=== PATIENT | female | born 1990 | race Caucasian/White ===

== ENCOUNTER 2018-11-07 20:15 | Emergency (ER) | payer OTHER ==
[2018-11-07 20:30] VITALS: BP 129/59; PULSE 63; RESP 18; TEMP 98.6
--- NOTE | 2018-11-07 20:50 | ED ---
General Adult HPI - General Chief complaint: Needlestick/Exposure Stated complaint: Needle Stick Source: patient, RN notes reviewed, old records reviewed Mode of arrival: ambulatory Limitations: no limitations - History of Present Illness Initial comments: 28-year-old female patient with no pertinent past medical history presents to ED after sustaining a needlestick exposure on . Patient states that after an intramuscular injection she recap the needle and accidentally stuck herself on the distal palmar second digit on left hand. Patient states that the needle was a 27-gauge hollow bore needle. Patient states that she does not believe that the patient had any blood-borne pathogens. Patient denies any other complaints. Systemic: Pt denies fatigue, myalgia, fever/chills, rash. Pt denies weakness, night sweats, weight loss. Neuro: Pt denies headache, visual disturbances, syncope or pre-syncope. HEENT: Pt denies ocular discharge or irritation, otalgia, rhinorrhea, pharyngitis or notable lymphadenopathy. Cardiopulmonary: Pt denies chest pain, SOB, heart palpitations, dyspnea on exertion. Abdominal/GI: Pt denies abdominal pain, n/v/d. : Pt denies dysuria, burning w/ urination, frequency/urgency. Denies new onset urinary or bowel incontinence. MSK: Pt denies myalgia, loss of strength or function in extremities. Neuro: Pt denies new onset weakness, paresthesias. - Related Data Home Medications Medication Instructions Recorded Confirmed Control Pills 1 tab PO DAILY 11/05/14 11/05/14 Allergies Allergy/AdvReac Type Severity Reaction Status Date / Time No Known Allergies Allergy Verified 11/07/18 20:30 Review of Systems ROS Statement: Those systems with pertinent positive or pertinent negative responses have been documented in the HPI. ROS Other: All systems not noted in ROS Statement are negative. Past Medical History Past Medical History: No Reported History History of Any Multi-Drug Resistant Organisms: None Reported Past Surgical History: No Surgical Hx Reported Past Psychological History: Depression Smoking Status: Never smoker Past Alcohol Use History: Occasional Past Drug Use History: None Reported General Exam - General Exam Comments Initial Comments: Constitutional: NAD, AOX3, Pt has pleasant affect. HEENT: NC/AT, trachea midline, neck supple, no lymphadenopathy. Posterior pharynx non erythematous, without exudates. External ears appear normal, without discharge. Mucous membranes moist. Eyes PERRLA, EOM intact. There is no scleral icterus. No pallor noted. Cardiopulmonary: RRR, no murmurs, rubs or gallops, no JVD noted. Lungs CTAB in anterior and posterior rider. No peripheral edema. Abdominal exam: Abdomen soft and non-distended. Abdomen non-tender to palpation in all 4 quadrants. Bowel sounds active in LLQ. No hepatosplenomegaly. No ecchymosis Neuro: CN II-XII grossly intact. No nuchal rigidity. MSK: No posterior calf tenderness bilaterally, homans sign negative bilaterally. Posterior tibialis and radial pulse +2 bilaterally. Sensation intact in upper and lower extremities. Full active ROM in upper and lower extremities, 5/5 stregnth. Limitations: no limitations Course Vital Signs 11/07/18 20:28 Temperature 98.6 F Pulse Rate 63 Respiratory 18 Rate Blood Pressure 129/59 O2 Sat by Pulse 100 Oximetry Medical Decision Making - Medical Decision Making 28-year-old female patient with no pertinent past medical history presents to ED after sustaining a needlestick exposure on . Patient states that after an intramuscular injection she recap the needle and accidentally stuck herself on the distal palmar second digit on left hand. Patient states that the needle was a 27-gauge hollow bore needle. Patient states that she does not believe that the patient had any blood-borne pathogens. Patient denies any other complaints. Physical exam did not display acute pathology. Long discussion patient with regards to blood-borne pathogens, risk of infection. Patient verbalized understanding. Patient declined HIV prophylaxis medication. Patient preferred to be called with results and have outpatient continued follow-up and testing. Case discussed with Dr. Salazar. Disposition Clinical Impression: Needlestick injury accident Disposition: HOME SELF-CARE Condition: Serious Instructions: Needle Stick Injuries (ED) Additional Instructions: Patient to adhere to previously discussed treatment plan and will take medication(s) as directed. Patient to follow up with PCP in 1-2 days. Patient to return to ED if symptoms do not improve. Is patient prescribed a controlled substance at d/c from ED?: No Referrals: None,Stated [Primary Care Provider] - 1-2 days Time of Disposition: 20:50
== END 2018-11-07 20:55 | disposition home or self-care (01) ==
LOC: EC 20:15
DX: S69.82XA Other specified injuries of left wrist, hand and finger(s), initial encounter (principal); Z77.21 Contact with and (suspected) exposure to potentially hazardous body fluids; Z79.3 Long term (current) use of hormonal contraceptives; W46.1XXA Contact with contaminated hypodermic needle, initial encounter
CPT/HCPCS: 99283

== ENCOUNTER → 2023-01-15 | Outpatient (CLI) | payer MEDICAID | END | disposition home or self-care (01) | LOC: LABWHC1 08:04 | PROVIDERS: ATTEND Obstetrics & Gynecology | DX: N97.8 Female infertility of other origin (principal) | CPT/HCPCS: 36415; 84144 ==

== ENCOUNTER → 2023-02-11 | Outpatient (CLI) | payer MEDICAID | END | disposition home or self-care (01) | LOC: LABWHC1 10:35 | PROVIDERS: ATTEND Obstetrics & Gynecology | DX: N97.8 Female infertility of other origin (principal) | CPT/HCPCS: 36415; 84144 ==

== ENCOUNTER → 2023-03-12 | Outpatient (CLI) | payer MEDICAID | END | disposition home or self-care (01) | LOC: LABWHC1 12:01 | PROVIDERS: ATTEND Obstetrics & Gynecology | DX: Z52.810 Egg (Oocyte) donor under age 35, anonymous recipient (principal); Z32.00 Encounter for pregnancy test, result unknown; O02.1 Missed abortion; N97.8 Female infertility of other origin | CPT/HCPCS: 36415; 84144 ==

== ENCOUNTER → 2023-03-31 | Outpatient (CLI) | payer MEDICAID ==
[2023-04-01 03:02] LABS: Basophils # (A) 0.06 X 10*3/uL (0.00-0.10); Basophils % (A) 0.7 %; Eosinophils # (A) 0.12 X 10*3/uL (0.04-0.35); Eosinophils % (A) 1.4 %; HCT 41.5 % (37.2-46.3); Lymphocytes # (A) 2.13 X 10*3/uL (0.90-5.00); MCH 30.4 pg (27.0-32.0); MCHC 31.3 d/dL (32.0-37.0); Mean Platelet Volume 10.2 FL (9.5-12.2); Monocytes # (A) 0.67 X 10*3/uL (0.20-1.00); Monocytes % (A) 7.9 %; NRBC Per 100 WBC 0 X 10*3/uL (0.00-0.01); Neutrophils # (A) 5.51 X 10*3/uL (1.80-7.70); Neutrophils % (A) 64.6 %; Platelet Count 273 X 10*3/uL (140-440); RBC 4.28 X 10*6/uL (4.10-5.20); RDW 13.2 % (11.5-14.5); WBC 8.52 X 10*3/uL (4.50-10.00)
== END | disposition home or self-care (01) ==
LOC: LABPAT 16:24
PROVIDERS: ATTEND Obstetrics & Gynecology
DX: Z01.812 Encounter for preprocedural laboratory examination (principal); N80.9 Endometriosis, unspecified
CPT/HCPCS: 85025

== ENCOUNTER 2023-04-07 11:21 | Day surgery (SDC) | payer MEDICAID ==
[2023-04-03 14:39] VITALS: BMI 24.3
[~2023-04-07 11:21] MED LIST: DEXAMETHASONE SOD PHOSPHATE 4 MG/ML 1 ML VIAL IV ONE; MORPHINE SULFATE 4 MG/ML SYRINGE IV PRN; ONDANSETRON 4 MG/2 ML VIAL IVP ONE; Pre Op ABX Message 1 EACH MISC MISCELLANE ONE
[2023-04-07] MEDS: LACTATED RINGERS 1,000 ML IV SCH (12:03)
[2023-04-07] MEDS ORDERED: SCOPOLAMINE 1 MG/72 HR PATCH TRANSDERM ONE (12:03)
[2023-04-07] MEDS ORDERED: fentaNYL (PF) 50 MCG/ML 2 ML AMP ONE (12:24)
[2023-04-07] MEDS ORDERED: LIDOCAINE 2% INJ 20 MG/ML (2 ML VIAL) ONE (12:24)
[2023-04-07] MEDS ORDERED: NEOSTIGMINE 1 MG/ML 10 ML VIAL ONE (12:24)
[2023-04-07] MEDS ORDERED: KETOROLAC 15 MG/ML 1 ML VIAL ONE (12:24)
[2023-04-07] MEDS ORDERED: SUCCINYLCHOLINE CHLORIDE 200 MG/10 ML VIAL IV ONE (12:24)
[2023-04-07] MEDS ORDERED: PROPOFOL 10 MG/ML 20 ML VIAL IV ONE (12:24)
[2023-04-07] MEDS ORDERED: ROCURONIUM 10 MG/ML (5 ML VIAL) IV ONE (12:24)
[2023-04-07] MEDS ORDERED: GLYCOPYRROLATE 0.2 MG/ML 2 ML VIAL ONE (12:24)
[2023-04-07] MEDS ORDERED: BUPIVACAINE (PF) 0.25% 30 ML VIAL SQ ONE ×2 (12:51)
[2023-04-07 13:31] VITALS: TEMP 97.1
--- NOTE | 2023-04-07 13:44 | P.OP ---
Date of Procedure: 04/07/23 Preoperative Diagnosis: Rule out endometriosis Postoperative Diagnosis: Pelvic adhesions, pelvic endometriosis Procedure(s) Performed: Diagnostic laparoscopy, cautery pelvic endometriosis Anesthesia: ABILIOA Surgeon: Kina Turner Estimated Blood Loss (ml): 10 IV fluids (ml): 600 Urine output (ml): 150 Pathology: none sent Condition: stable Disposition: PACU Operative Findings: Normal-appearing fallopian tubes bilaterally. Normal-appearing ovaries bilaterally. Normal-appearing posterior cul-de-sac. Normal-appearing appendix. Negative pelvic sidewalls bilaterally. Pelvic endometriosis noted on the anterior uterine surface to the bladder serosa. There are adhesions noted in this same region, filmy, bilaterally, taken down nicely laparoscopically. Description of Procedure: Patient is brought to the operating suite. General anesthetic is administered without difficulty. Urine hCG is negative. Patient is placed in the dorsal lithotomy position. The cervix, vagina, perineal body and abdomen are all prepped and draped in usual sterile fashion. The appropriate timeout is performed to assure proper patient and procedural identification. The bladder is drained for approximately 150 mL of clear yellow. Examination under anesthesia is negative. Speculum is placed, anterior lip of the cervix is grasped with an Allis clamp and a acorn cannula is seated on the cervix and attached to the Allis clamp. Speculum is removed. Attention is now drawn to the abdominal wall. A small incision is made infraumbilically and the varies needle is placed, placement is checked with hanging drop technique. Abdomen is insufflated under low filling pressures of approximately 8-10 mmHg for a total of 3 L of CO2 gas. Varies needle is removed. 5 mm trocar is now placed and placement is noted to be atraumatic upon inserting the laparoscope. A second incision is made suprapubically under direct visualization the second trocar is placed, placement atraumatic. Uterus is now placed in the anteverted position and the cul-de-sac is inspected. Uterosacral ligaments are negative. Bilateral tubes and ovaries appeared very normal to inspection. Both pelvic sidewalls are negative. The upper abdomen is negative, appendix appears normal. The uterus is now once again evaluated and placed into the pelvic cavity. There are filmy adhesions noted from the anterior uterine serosal surface to the b ladder. Electrocautery is used and these filmy adhesions are taken down. In addition, endometriosis is noted bilaterally again on the side of the uterus acid interface is with the bladder. Electrocautery is used and the endometriosis is cauterized. "Chocolate fluid" is encountered. When I am confident that the endometriosis has been thoroughly cauterized, the pelvis is irrigated with sterile saline and once again inspected. It is clean and dry. The CO2 gas was allowed to diffuse. The 2 small incisions are reapproximated with 4-0 Monocryl suture subcuticularly. Steri-Strips and Mastisol are applied to the wounds after they are injected with 3 mL each of quarter percent Marcaine without epinephrine. Instrumentation is removed from the vagina. Cervix is clean and dry. All sponge needle and enhancement counts are correct. Patient is brought back to recovery room in very good condition with stable vital signs, blood pressure 91/43, pulse 50. She is given Toradol prior to leaving the operative suite. She will follow-up in the office with me next week. Picture documentation is given to the family to confirm the above.
[2023-04-07] MEDS ORDERED: LACTATED RINGERS 1,000 ML IV ONE ×2 (14:14→14:36)
[2023-04-07 14:39] VITALS: PULSE 66; RESP 14
[2023-04-07 14:50] VITALS: BP 112/75
== END 2023-04-07 15:00 | disposition home or self-care (01) ==
LOC: OR 11:21
PROVIDERS: ATTEND Obstetrics & Gynecology
DX: N80.30 Endometriosis of pelvic peritoneum, unspecified (principal); N73.6 Female pelvic peritoneal adhesions (postinfective); Z79.82 Long term (current) use of aspirin; Z88.8 Allergy status to other drugs, medicaments and biological substances
CPT/HCPCS: 58662; J0330; J1100; J2710; J2405; J3010; J1885; J2704; J2001

== ENCOUNTER → 2023-10-31 | Outpatient (CLI) | payer MEDICAID ==
[2023-10-31 23:19] LABS: T4, Free (Free Thyroxine) 1.12 ng/dL (0.80-1.80)
[2023-10-31 23:36] LABS: Prolactin 20.2 ng/mL (2.800-29.200)
== END | disposition home or self-care (01) ==
LOC: LABWHC1 10:32
PROVIDERS: ATTEND Obstetrics & Gynecology Obstetrics
DX: N92.5 Other specified irregular menstruation (principal); N96 Recurrent pregnancy loss
CPT/HCPCS: 36415; 81240; 81241; 81291; 83036; 84144; 84146; 84439; 84443; 84702

== ENCOUNTER → 2023-11-04 | Outpatient (CLI) | payer MEDICAID | END | disposition home or self-care (01) | LOC: LABWHC1 12:39 | PROVIDERS: ATTEND Nurse Practitioner Acute Care | DX: E03.9 Hypothyroidism, unspecified (principal) | CPT/HCPCS: 36415; 84443 ==

== ENCOUNTER → 2023-11-10 | Outpatient (CLI) | payer MEDICAID | END | disposition home or self-care (01) | LOC: LABWHC1 13:56 | PROVIDERS: ATTEND Obstetrics & Gynecology Obstetrics | DX: O02.1 Missed abortion (principal); Z3A.00 Weeks of gestation of pregnancy not specified | CPT/HCPCS: 36415; 84702 ==

== ENCOUNTER → 2024-01-06 | Outpatient (CLI) | payer MEDICAID | END | disposition home or self-care (01) | LOC: LABWHC1 06:56 | PROVIDERS: ATTEND Obstetrics & Gynecology | DX: N97.8 Female infertility of other origin (principal) | CPT/HCPCS: 36415; 84144; 84702 ==

== ENCOUNTER 2024-09-05 10:04 | Inpatient (IN) | payer MEDICAID ==
[2024-09-05] MEDS: LACTATED RINGERS 1,000 ML IV SCH ×2 (10:30→16:23)
[2024-09-05] MEDS ORDERED: miSOPROStoL 200 MCG TAB PO PRN (10:39)
[2024-09-05] MEDS ORDERED: TRANEXAMIC 1,000 MG/100ML-NACL 1,000 MG in EMPTY BAG 1 BAG IV PRN (10:39)
[2024-09-05] MEDS ORDERED: METHYLERGONOVINE 0.2 MG/ML 1 ML AMP IM PRN (10:39)
[2024-09-05] MEDS ORDERED: OXYTOCIN 10 UNIT/ML 1 ML VIAL IM PRN (10:39)
[2024-09-05] MEDS ORDERED: CARBOPROST TROMETHAMINE 250 MCG/ML 1 ML AMP IM PRN (10:39)
[2024-09-05 10:47] LABS: Basophils # (A) 0.1 k/uL (0-0.2); Basophils % (A) 1 %; Eosinophils # (A) 0.3 k/uL (0-0.7); Eosinophils % (A) 3 %; HCT 35.5 % (34.0-46.0); HGB 11.8 gm/dL (11.4-16.0); Lymphocytes # (A) 1.5 k/uL (1.0-4.8); Lymphocytes % (A) 18 %; MCH 30.6 pg (25.0-35.0); MCHC 33.1 g/dL (31.0-37.0); MCV 92.4 fL (80.0-100.0); Mean Platelet Volume 8.1; Monocytes # (A) 0.4 k/uL (0-1.0); Monocytes % (A) 5 %; Neutrophils # (A) 6.1 k/uL (1.3-7.7); Neutrophils % (A) 72 %; Platelet Count 220 k/uL (150-450); RBC 3.84 m/uL (3.80-5.40); RDW 14.4 % (11.5-15.5); WBC 8.5 k/uL (3.8-10.6)
[2024-09-05] MEDS: CITRIC ACID-SODIUM CITRATE 15 ML CUP PO ONE (11:42)
[2024-09-05] MEDS ORDERED: ONDANSETRON 4 MG/2 ML VIAL ONE (12:02)
[2024-09-05] MEDS ORDERED: MORPHINE SULFATE (PF) 0.3 MG/0.3 ML SYR ONE (12:02)
[2024-09-05] MEDS ORDERED: OXYTOCIN 30 UNITS/500 ML NS BAG IV ONE (12:02)
[2024-09-05] MEDS ORDERED: NALBUPHINE (ANES) 10 MG/ML - 1 ML AMP ONE (12:02)
[2024-09-05] MEDS ORDERED: NALOXONE 0.4 MG/ML 1 ML VIAL IV PRN ×2 (12:47→12:58)
[2024-09-05] MEDS ORDERED: diphenhydrAMINE 50 MG/ML 1 ML VIAL IVP PRN ×2 (12:47→12:58)
[2024-09-05] MEDS ORDERED: ONDANSETRON 4 MG/2 ML VIAL IVP PRN ×2 (12:47→12:58)
[2024-09-05] MEDS ORDERED: NALBUPHINE 10 MG/ML (10 ML MDV) IV PRN (12:47)
--- NOTE | 2024-09-05 12:55 | P.HPOB ---
History of Present Illness H&P Date: 09/05/24 Chief Complaint: IUP at 39-2/7 weeks, breech presentation This is a 34-year-old 5 para 0-0-4-0 that presents to labor and delivery at 39-2/7 weeks for scheduled primary . Patient has a known history of MTHFR and has been on prophylactic Lovenox. Patient has been receiving routine care which has been essentially uncomplicated. Patient notes good movement denies contractions. On blood work this patient is a blood type of a positive, rubella status immune, hepatitis B surface engine negative, HIV negative, hepatitis C nonreactive, grew beta strep culture negative. Review of Systems Constitutional: Denies chills, Denies fatigue, Denies fever Ears, nose, mouth and throat: Denies headache Cardiovascular: Denies leg edema Respiratory: Denies dyspnea Gastrointestinal: Denies constipation, Denies diarrhea, Denies nausea, Denies vomiting Genitourinary: Reports Past Medical History Past Medical History: No Reported History Additional Past Medical History / Comment(s): Missed . History of Any Multi-Drug Resistant Organisms: None Reported Past Surgical History: No Surgical Hx Reported Additional Past Surgical History / Comment(s): d&c, exploratory lab 2022 Past Anesthesia/Blood Transfusion Reactions: No Reported Reaction Additional Past Anesthesia/Blood Transfusion Reaction / Comment(s): Has never had general anesthesia. Past Psychological History: Depression, No Psychological Hx Reported Additional Psychological History / Comment(s): Hx depression, none currently. Smoking Status: Never smoker Past Alcohol Use History: Occasional Past Drug Use History: None Reported - Past Family History Father Family Medical History: Cancer Additional Family Medical History / Comment(s): Testicular Cancer. Medications and Allergies Home Medications Medication Instructions Recorded Confirmed Type Aspirin [Adult Low Dose Aspirin EC] 81 mg PO DAILY 04/03/23 09/05/24 History Vit No.179/Iron/Folic 1 each PO DAILY 04/03/23 09/05/24 History [ Tablet] Enoxaparin [Lovenox] 40 mg SQ DAILY 09/05/24 09/05/24 History Allergies Allergy/AdvReac Type Severity Reaction Status Date / Time casirivimab AdvReac Rash/Hives Verified 09/05/24 10:38 [From [facility] ([facility])] imdevimab AdvReac Rash/Hives Verified 09/05/24 10:38 [From [facility] [place] ([place])] Exam Osteopathic Statement: *. No significant issues noted on an osteopathic structural exam other than those noted in the History and Physical/Consult. Vital Signs Temp Pulse Resp BP Pulse Ox 09/05/24 10:27 98.4 F 88 18 116/75 98 Intake and Output 09/04/24 09/05/24 09/05/24 22:59 06:59 14:59 Other: Weight 82.1 kg Targeted physical exam is performed this date General Is a well-nourished well- developed female in no acute distress, breathing is nonlabored, heart has a regular rate and rhythm, abdomen is gravid, position is noted to be myrna breech, heart tones are noted to be category 1 and she is not prudencio, cervix is not examined. Results Result Diagrams: 09/05/24 10:31 Assessment and Plan (1) Term Current Visit: Yes Status: Acute Code(s): Z34.90 - ENCNTR FOR SUPRVSN OF NORMAL , UNSP, UNSP TRIMESTER SNOMED Code(s): 26916096 (2) Breech presentation Current Visit: Yes Status: Acute Code(s): O32.1XX0 - MATERNAL CARE FOR BREECH PRESENTATION, UNSP SNOMED Code(s): 0622678 Plan: 34-year-old 5 para 0-0-4-0 at 39-2/7 weeks that presents for primary C- section secondary to breech presentation. Procedure is reviewed and questions are answered. Last Lovenox dose was approximately 24 hours ago. Patient denies concerns and wishes to proceed, anesthesia in room will proceed to operating room.
[2024-09-05] MEDS ORDERED: METOCLOPRAMIDE 5 MG/ML 2 ML VIAL IVP PRN (12:58)
[2024-09-05] MEDS ORDERED: diphenhydrAMINE 50 MG CAP PO PRN (12:58)
[2024-09-05] MEDS ORDERED: ZOLPIDEM 5 MG TAB PO PRN (12:58)
[2024-09-05] MEDS ORDERED: SIMETHICONE 80 MG CHEWABLE PO PRN (12:58)
[2024-09-05] MEDS ORDERED: diphenhydrAMINE 25 MG CAP PO PRN (12:58)
--- NOTE | 2024-09-05 12:58 | P.OP ---
Date of Procedure: 09/05/24 Preoperative Diagnosis: IUP at 39-2/7 weeks, breech presentation Postoperative Diagnosis: Same Procedure(s) Performed: Primary low-transverse section Anesthesia: spinal Surgeon: Pebbles Molina Narcotics Agent #1: Alisha Barney Estimated Blood Loss (ml): 861 IV fluids (ml): 900 Urine output (ml): 100 Pathology: none sent Condition: stable Disposition: observation Indications for Procedure: Breech presentation Operative Findings: Viable female infant delivered at 1222, weight of 6 pounds 15 ounces, myrna breech presentation Description of Procedure: The patient was prepped and draped in the usual fashion after spinal anesthesia was administered by Dr. Hassan. A Pfannenstiel incision was made and extended of the abdominal cavity without difficulty. The bladder peritoneum was elevated and incised and reflected distally. A 2 cm incision was made in the transverse plane of the lower uterine segment to enter the uterus at which time clear fluid was noted. The incision was extended in both directions using the bandage scissors. The sacrum was appreciated, elevated through the uterine incision to the level of the upper torso both arms were swept across the face and the head was delivered without difficulty. The cord was doubly clamped, cut, and the was passed for resuscitative measures with weight and Apgars as noted above. The placenta was delivered manually, intact, and was grossly normal with a grossly normal three-vessel cord. The uterus was exteriorized and the interior cavity of the uterus swept of any remaining placental and membranous fragments with a laparotomy sponge. The margins of the incision were grasped with Allis clamps and the incision closed in 2 layers. First layer was a running locking layer of 0 Vicryl from margin to margin followed by a second layer of imbricating 0 Vicryl from margin to margin. Small amount of bleeding was noted in the mid/lateral portion 2 [id number] sutures were used to obtain hemostasis. Any small points of bleeding were then made hemostatic with the Bovie. Once hemostasis was achieved, the posterior cul-de-sac was suctioned with a guard and the uterine and ovarian findings are as noted above. The uterus was replaced within the abdominal cavity and the gutters swept of any remaining blood fluid or clot. The incision was again reexamined and hemostasis was noted to be excellent. Any small point of bleeding were made hemostatic with the Bovie. Once hemostasis was achieved the parietal peritoneum was loosely reapproximated. The layer of muscles were examined and made hemostatic with the Bovie. Attention was then turned to the fascia which was closed with a running suture of 0 Vicryl proceeding from 1 lateral edge to the other. The subcutaneous tissues were irrigated, made hemostatic with the Bovie, and reapproximated with a running stitch of 30 Vicryl. The skin was reapproximated with 4-0 Vicryl. Estimated blood loss for the case was approximately 210115 mL. All sponge instrument and needle counts are correct. There were no complications. The patient tolerated the procedure well and proceeded to the recovery room in stable condition. Both mother and are resting comfortably in recovery.
[2024-09-05] MEDS ORDERED: OXYTOCIN 30 UNITS/500 ML NS 30 UNIT in SALINE 1 500ML.BAG IV SCH (13:00)
[2024-09-05] MEDS: METOCLOPRAMIDE 5 MG/ML 2 ML VIAL IVP PRN (13:31)
[2024-09-05] MEDS: diphenhydrAMINE 50 MG/ML 1 ML VIAL IVP PRN (15:32)
[2024-09-05] MEDS: ACETAMINOPHEN IV (For NPO) 1,000 MG in EMPTY BAG 1 BAG IVPB ONE (16:05)
[2024-09-05] MEDS: KETOROLAC 15 MG/ML 1 ML VIAL IVP PRN (19:50)
[2024-09-05] MEDS: SENNOSIDES-DOCUSATE SODIUM 1 EACH TAB PO SCH (22:05)
[2024-09-06] MEDS: ACETAMINOPHEN TAB 500 MG TAB PO SCH (01:10)
[2024-09-06] MEDS: IBUPROFEN 800 MG TAB PO SCH (04:09)
[2024-09-06 06:24] LABS: Basophils % (A) 0 %; Eosinophils # (A) 0.2 k/uL (0-0.7); Eosinophils % (A) 2 %; HCT 31.2 % (34.0-46.0); HGB 10.5 gm/dL (11.4-16.0); Lymphocytes # (A) 2.1 k/uL (1.0-4.8); Lymphocytes % (A) 19 %; MCH 31.4 pg (25.0-35.0); MCHC 33.6 g/dL (31.0-37.0); MCV 93.5 fL (80.0-100.0); Mean Platelet Volume 8.2; Monocytes # (A) 0.4 k/uL (0-1.0); Monocytes % (A) 4 %; Neutrophils # (A) 8.3 k/uL (1.3-7.7); Neutrophils % (A) 74 %; Platelet Count 202 k/uL (150-450); RBC 3.34 m/uL (3.80-5.40); RDW 14.6 % (11.5-15.5); WBC 11.2 k/uL (3.8-10.6)
--- NOTE | 2024-09-06 08:29 | P.PN ---
Progress Note - Text Progress Note Date: 09/06/24 Patient was seen and examined side. Received intrathecal morphine 300 mcg , and for postop pain control as per surgeon request. Today postop day 1 . Today complaining her pain levels 3-4 out of 10 in severity. Able to ambulate without any difficulty. Denied any weakness. Mild itching. Physical exam: Vitals : stable vitals, afebrile Assessment and plan: S/p postop day 1 - Continue oral pain medications as needed as per primary care. Please contact anesthesia as needed.
--- NOTE | 2024-09-06 12:44 | P.PNOBGPC ---
Subjective - Subjective Principal diagnosis: Postop day 1, primary Interval history: Patient is doing well postoperatively. She is ambulating and voiding without difficulty. States her pain is well-controlled. She denies nausea or vomiting is tolerating regular diet, lochia is noted to be minimal to moderate. Patient reports: Reports appetite normal, Reports voiding normally, Reports pain well controlled, Reports ambulating normally : doing well, nursing well Objective - Vital Signs Latest vital signs: Vital Signs Temp Pulse Resp BP Pulse Ox 09/06/24 11:00 16 09/06/24 09:00 16 97 09/06/24 08:00 98.1 F 78 16 116/68 97 09/06/24 07:00 16 09/06/24 04:53 18 96 09/06/24 03:00 18 09/06/24 01:00 16 96 09/06/24 00:53 98.6 F 72 16 111/63 96 09/05/24 23:00 16 09/05/24 21:00 16 09/05/24 19:00 18 09/05/24 16:00 98 09/05/24 15:47 98.8 F 73 18 143/77 99 09/05/24 14:53 96.9 F L 65 16 129/71 100 09/05/24 14:38 96.9 F L 69 18 137/70 100 09/05/24 14:23 73 18 118/61 99 09/05/24 14:08 96.6 F L 58 L 18 114/62 99 09/05/24 13:53 72 18 104/58 99 09/05/24 13:47 18 98 09/05/24 13:38 65 18 114/57 99 09/05/24 13:23 62 18 103/58 100 09/05/24 13:08 64 18 112/57 99 09/05/24 12:53 96.7 F L 70 18 109/56 98 Intake and Output 09/05/24 09/06/24 09/06/24 22:59 06:59 14:59 Output Total 653 300 Balance -653 -300 Output: Urine 600 300 Uretheral (Mccarthy) 250 Output, Quantitative 53 Blood Loss Other: # Voids 250 1 - Exam Extremities: Present: normal, edema Abdomen: Present: normal appearance, soft Incision: Present: normal, dry, intact Uterus: Present: normal, firm - Labs Labs: Abnormal Lab Results - Last 24 Hours (Table) 09/06/24 Range/Units 06:09 WBC 11.2 H (3.8-10.6) k/uL RBC 3.34 L (3.80-5.40) m/uL Hgb 10.5 L (11.4-16.0) gm/dL Hct 31.2 L (34.0-46.0) % Neutrophils # 8.3 H (1.3-7.7) k/uL Assessment and Plan (1) Term Current Visit: Yes Status: Acute Code(s): Z34.90 - ENCNTR FOR SUPRVSN OF NORMAL , UNSP, UNSP TRIMESTER SNOMED Code(s): 69832261 (2) Breech presentation Current Visit: Yes Status: Acute Code(s): O32.1XX0 - MATERNAL CARE FOR BREECH PRESENTATION, UNSP SNOMED Code(s): 5886568 (3) Status post section Current Visit: Yes Status: Acute Code(s): Z98.891 - HISTORY OF UTERINE SCAR FROM PREVIOUS SURGERY SNOMED Code(s): 131358401 Plan: 34-year-old 5 now para 1-0-4-1 status post primary for breech presentation. Patient is doing well postoperatively. Will restart patient's Lovenox 40 mg given her prior diagnosis of MTHFR. Encourage increased ambulation Anticipate discharge home tomorrow.
[2024-09-06] MEDS ORDERED: ENOXAPARIN 40 MG/0.4 ML SYRINGE SQ SCH (12:45)
[2024-09-06] MEDS: ENOXAPARIN 40 MG/0.4 ML SYRINGE SQ SCH (13:26)
[2024-09-06] MEDS ORDERED: IBUPROFEN 800 MG TAB PO SCH (17:00)
[2024-09-06] MEDS ORDERED: ACETAMINOPHEN TAB 500 MG TAB PO SCH (21:00)
[2024-09-07 00:26] VITALS: TEMP 98.7
--- NOTE | 2024-09-07 08:46 | P.DS ---
Providers Date of admission: 09/05/24 10:04 Expected date of discharge: 09/07/24 Attending physician: Pebbles Molina Primary care physician: Stated None - Discharge Diagnosis(es) (1) Term Current Visit: Yes Status: Acute (2) Breech presentation Current Visit: Yes Status: Acute (3) Status post section Current Visit: Yes Status: Acute Hospital Course: This is a 34-year-old 5 now para 1-0-4-1 that presented to labor and delivery on 09/05 for scheduled section secondary to breech presentation. Patient had been receiving routine care with myself which has been essentially uncomplicated. Patient does have a history of MTHFR mutation for which she has been taking Lovenox 40 mg subcu daily. For full details on this patient please see the dictated history and physical. Patient was admitted to labor and delivery and section was performed without difficulty. For full details on the please see the dictated operative for. Patient delivered a viable female infant at 1222, weight of 6 pounds 15 ounces, myrna breech presentation. Patient's course has been uneventful. In this postoperative day #2 she is ambulating and voiding without difficulty. She is tolerating a regular diet without nausea or vomiting. She states her pain is well-controlled. She denies concerns and would like discharge home. Patient Condition at Discharge: Good Plan - Discharge Summary New Discharge Prescriptions: No Action Vit No.179/Iron/Folic [ Tablet] 1 each PO DAILY Aspirin [Adult Low Dose Aspirin EC] 81 mg PO DAILY Enoxaparin [Lovenox] 40 mg SQ DAILY Discharge Medication List Aspirin [Adult Low Dose Aspirin EC] 81 mg PO DAILY 04/03/23 [History] Vit No.179/Iron/Folic [ Tablet] 1 each PO DAILY 04/03/23 [History] Enoxaparin [Lovenox] 40 mg SQ DAILY 09/05/24 [History] Follow up Appointment(s)/Referral(s): Pebbles Molina DO [Doctor of Osteopathic Medicine] - 09/20/24 1:00 pm (Post Appointment 10-18-2024 at 1:00pm) Patient Instructions/Handouts: (DC), (GEN) Activity/Diet/Wound Care/Special Instructions: No intercourse, or tub baths. No driving for two weeks. Call with any fever, shakes or chills, with any pain not alleviated by over the counter meds, or with any questions or concerns. Twuj-bdm-iocghgo ibuprofen 600 mg or 3 tablets every 6 hours as needed for pain. Patient is to follow-up in 2 weeks for routine postoperative check, should she have any concerns prior to his appointment she is urged to call the office and be seen prior Discharge Disposition: HOME SELF-CARE
[2024-09-07] MEDS ORDERED: PRENATAL VIT-IRON-FOLIC ACID 1 EACH TABLET PO SCH (09:00)
[2024-09-07 09:40] VITALS: BP 130/64; PULSE 70; RESP 18
== END 2024-09-07 11:00 | disposition home or self-care (01) | DRG 787 ==
LOC: 4FBP 10:04
PROVIDERS: ADMIT Obstetrics & Gynecology Obstetrics; ATTEND Obstetrics & Gynecology Obstetrics
PROC: 10D00Z1 Extraction of Products of Conception, Low, Open Approach (ICD-10-PCS; principal; 2024-09-05 12:00)
DX: O32.1XX0 Maternal care for breech presentation, not applicable or unspecified (principal); E72.12 Methylenetetrahydrofolate reductase deficiency; O99.284 Endocrine, nutritional and metabolic diseases complicating childbirth; F32.A Depression, unspecified; O99.344 Other mental disorders complicating childbirth; Z37.0 Single live birth; Z3A.39 39 weeks gestation of pregnancy; Z79.82 Long term (current) use of aspirin; Z88.8 Allergy status to other drugs, medicaments and biological substances
CPT/HCPCS: 85025; 86850; 86900; 86901

== ENCOUNTER → 2025-03-29 | Outpatient (CLI) | payer MEDICAID ==
--- NOTE | 2025-03-30 10:05 | MR ---
EXAMINATION TYPE: MR lumbar spine wo/w con DATE OF EXAM: 03/29/2025 8:18 PM COMPARISON: None. CLINICAL INDICATION: Female, 34 years old with history of M54.60; PHH, Low back pain into left leg, N umbness left leg, x1-2 months, Hx spinal block Aug 2024 TECHNIQUE: Multi planar, multi sequence imaging was performed utilizing: T1-weighted, T2-weighted, a nd turbo inversion recovery imaging of the lumbar spine. IV Contrast: 7 mL Gadobutrol (None, if empty) FINDINGS: Alignment: The lumbar vertebral bodies have preserved heights and alignment. Cord: The conus medullaris and the distal spinal cord appear unremarkable with regards to their signa l intensity and morphology. Bones/Discs: Minimal disc degeneration changes worse at L5-S1 with disc space narrowing, Modic endpla te changes and osteophytes. Intervertebral disc signal is maintained. No abnormal inversion recovery signal to suggest bony edema. T12-L1: No evidence of significant spinal canal stenosis or neural foraminal stenosis. L1-L2: No evidence of significant spinal canal stenosis or neural foraminal stenosis. L2-L3: No evidence of significant spinal canal stenosis or neural foraminal stenosis. L3-L4: No evidence of significant spinal canal stenosis or neural foraminal stenosis. L4-L5: No evidence of significant spinal canal stenosis or neural foraminal stenosis. L5-S1: Largest left extrusion which displaces the forming nerves in the spinal canal/exiting S1 and S 2 nerve on the left. No significant spinal canal or neural foraminal stenosis in the remainder of the visualized levels. Other findings: None. IMPRESSION: 1. L5-S1 large disc extrusion which displaces the exiting S1 or S2 nerve. 2. No definitive evidence of significant spinal canal stenosis. 3. Minimal disc degeneration with associated osteoarthritic changes. [facility], , 03/30/2025 10:03 AM
== END | disposition home or self-care (01) ==
LOC: RADMRIMAIN 19:35
PROVIDERS: ATTEND Internal Medicine Geriatric Medicine
DX: M51.27 Other intervertebral disc displacement, lumbosacral region (principal); M51.360 Other intervertebral disc degeneration, lumbar region with discogenic back pain only
CPT/HCPCS: 72158; A9585

== ENCOUNTER → 2025-04-08 | Outpatient (CLI) | payer MEDICAID ==
[2025-04-08 12:44] LABS: INR 0.9 (<1.2); Partial Thromboplastin Time 24.2 sec (22.0-30.0); Prothrombin Time 10.6 sec (10.0-12.5)
[2025-04-08 12:52] LABS: Appearance,Urine Cloudy (Clear); Bacteria,Urine Rare /hpf; Bilirubin,Urine Negative (Negative); Blood,Urine Moderate (Negative); Color,Urine Yellow; Glucose,Urine (UA) Negative (Negative); Ketones,Urine Negative (Negative); Leukocyte Esterase,Urine Negative (Negative); Mucus,Urine Few /hpf; Nitrite,Urine Negative (Negative); Protein,Urine Trace (Negative); RBC,Urine 3 /hpf (0-5); Specific Gravity,Urine 1.034 (1.001-1.035); Squamous Epithelial Cell,Urine 16 /hpf (0-4); Urobilinogen,Urine <2.0 mg/dL (<2.0); WBC,Urine 4 /hpf (0-5)
[2025-04-09 01:46] LABS: ALT 33 U/L (8-44); AST 18 U/L (13-35); Albumin 4.5 g/dL (3.8-4.9); Alkaline Phosphatase 62 U/L (41-126); Blood Urea Nitrogen 16.8 mg/dL (9.0-27.0); Calcium 9.6 mg/dL (8.7-10.3); Carbon Dioxide 23.7 mmol/L (21.6-31.8); Chloride 100 mmol/L (96-109); Glucose 83 mg/dL (70-110); Potassium 3.7 mmol/L (3.5-5.5); Sodium 139 mmol/L (135-145); Total Bilirubin 0.3 mg/dL (0.3-1.2); Total Protein 7.5 g/dL (6.2-8.2)
[2025-04-09 01:57] LABS: Prealbumin 27.7 mg/dL (18.0-42.0)
[2025-04-09 06:08] LABS: Basophils # (A) 0.06 X 10*3/uL (0.00-0.10); Eosinophils # (A) 0.11 X 10*3/uL (0.04-0.35); Eosinophils % (A) 1.8 %; HCT 44.1 % (37.2-46.3); HGB 14.6 g/dL (12.0-15.0); Lymphocytes # (A) 1.69 X 10*3/uL (0.90-5.00); Lymphocytes % (A) 27.5 %; MCH 30.3 pg (27.0-32.0); MCHC 33.1 g/dL (32.0-37.0); MCV 91.5 FL (80.0-97.0); Mean Platelet Volume 9.6 FL (9.5-12.2); Monocytes # (A) 0.66 X 10*3/uL (0.20-1.00); Monocytes % (A) 10.7 %; NRBC Per 100 WBC 0 X 10*3/uL (0.00-0.01); Neutrophils # (A) 3.61 X 10*3/uL (1.80-7.70); Neutrophils % (A) 58.8 %; Platelet Count 288 X 10*3/uL (140-440); RBC 4.82 X 10*6/uL (4.10-5.20); RDW 12.7 % (11.5-14.5); WBC 6.14 X 10*3/uL (4.50-10.00)
== END | disposition home or self-care (01) ==
LOC: LABWHC1 11:49
PROVIDERS: ATTEND Specialist
DX: M51.26 Other intervertebral disc displacement, lumbar region (principal); M54.16 Radiculopathy, lumbar region
CPT/HCPCS: 36415; 80053; 81001; 83036; 84134; 85025; 85610; 85730; 87070